=== PATIENT | female | born 1930 | race Caucasian/White ===

== ENCOUNTER → 2016-09-17 10:36 | Outpatient (CLI) | payer MEDICARE ==
[2011-08-06 06:25] VITALS: BMI 25.3
== END | disposition home or self-care (01) ==
LOC: D.MRI 09-16 11:00
DX: M48.06 Spinal stenosis, lumbar region (principal)

== ENCOUNTER 2016-11-07 06:30 | Day surgery (SDC) | payer MEDICARE ==
[2016-11-06 10:31] LABS: BASOPHILS 0.7 % (0-2); EOSINOPHILS 1.4 % (0-7); HEMATOCRIT 41.9 % (36.0-48.0); HEMOGLOBIN 14.2 g/dL (12-16); IMMATURE GRANULOCYTES 0.2 % (0-5); LYMPHOCYTES 24.4 % (15-50); MCH 29.8 pg (26.0-34.0); MCHC 33.9 g/dL (31.0-37.0); MEAN PLATELET VOLUME 9.6 fL (7.4-10.4); MONOCYTES 7.1 % (2-11); NEUTROPHILS 66.2 % (40-80); RBC 4.76 10x6/uL (4.00-5.40); RDW 13.4 % (11.5-14.5); WBC 4.3 10x3/uL (4.8-10.8)
[2016-11-06 10:34] LABS: PLATELET COUNT 154 10x3/uL (130-400)
[2016-11-06 10:41] LABS: ANION GAP 12.4 mmol/L (8-16); CALCIUM 8.6 mg/dL (8.5-10.1); CREATININE - SERUM 0.8 mg/dL (0.6-1.3); POTASSIUM - SERUM 4.4 mmol/L (3.5-5.1)
[2016-11-06 10:42] LABS: APTT 31.1 SECONDS (22.8-39.4)
[~2016-11-07] VITALS: Ht 157.5 cm; Wt 63.5 kg
[~2016-11-07 06:30] MED LIST: ASPIRIN EC81 M1 PO; BIOTIN5 MG PO; HYDROCODON-ACE1 EAC7 PO; RESTORIL15 MG PO
[2016-11-07 08:03] VITALS: BP 189/42; Ht 157.5 cm; Wt 63.5 kg
--- NOTE | 2016-11-07 17:16 | NUR ---
1305- PT SITTING UP WITH HOB ELEVATED. VSS. AWAKE AND ALERT. WILL MONITOR. 1345- TRANSPORTATION CALLED. VSS. WILL CONTINUE TO MONITOR. 1405- IV D/C'D, CATHETER INTACT. 1425- DISCHARGE INSTRUCTIONS COMPLETED. PAPERWORK SIGNED. 1430- PT DISCHARGED VIA WHEELCHAIR, TO [facility]S TRANSP[facility].
== END 2016-11-07 14:30 | disposition home or self-care (01) ==
LOC: D.OPS 06:30 → D.PAN 09:50 → D.OPS 10:30 → D.PAN 10:30 → D.OPS 14:30
PROVIDERS: Anesthesiology
DX: N39.41 Urge incontinence (principal); N32.89 Other specified disorders of bladder; Z01.812 Encounter for preprocedural laboratory examination

== ENCOUNTER → 2016-12-31 18:05 | Outpatient (CLI) | payer MEDICARE ==
[2016-11-07 08:03] VITALS: BMI 25.6
[2016-12-31 21:41] LABS: APPEARANCE CLEAR (CLEAR); BILIRUBIN NEGATIVE (NEGATIVE); COLOR YELLOW (YELLOW); GLUCOSE NEGATIVE (NEGATIVE); KETONE NEGATIVE (NEGATIVE); LEUKOCYTE ESTERASE TRACE (NEGATIVE); NITRITE NEGATIVE (NEGATIVE); PROTEIN NEGATIVE (NEGATIVE); UROBILINOGEN NORMAL (NORMAL)
[2016-12-31 21:42] LABS: BACTERIA MANY /hpf (NONE SEEN); EPITHELIAL CELLS 0-5 /hpf (0-5); WHITE CELLS - URINE 0-5 /hpf (0-5)
== END | disposition home or self-care (01) ==
LOC: D.LABREF 18:05
PROVIDERS: Urology
DX: N39.0 Urinary tract infection, site not specified (principal)

== ENCOUNTER → 2017-02-04 16:34 | Outpatient (CLI) | payer MEDICARE ==
[2016-11-07 08:03] VITALS: BMI 25.6
== END | disposition home or self-care (01) ==
LOC: D.LABREF 16:34
DX: N39.0 Urinary tract infection, site not specified (principal)

== ENCOUNTER → 2017-02-18 17:54 | Outpatient (CLI) | payer MEDICARE ==
[2016-11-07 08:03] VITALS: BMI 25.6
== END | disposition home or self-care (01) ==
LOC: D.LABREF 17:54
DX: N39.0 Urinary tract infection, site not specified (principal)

== ENCOUNTER → 2017-05-12 18:54 | Outpatient (CLI) | payer MEDICARE ==
[2016-11-07 08:03] VITALS: BMI 25.6
== END | disposition home or self-care (01) ==
LOC: D.LABREF 18:54
DX: N39.0 Urinary tract infection, site not specified (principal)

== ENCOUNTER → 2017-05-26 21:32 | Outpatient (CLI) | payer MEDICARE ==
[2016-11-07 08:03] VITALS: BMI 25.6
== END | disposition home or self-care (01) ==
LOC: D.LABREF 21:32
DX: N39.0 Urinary tract infection, site not specified (principal)

== ENCOUNTER → 2017-06-09 18:19 | Outpatient (CLI) | payer MEDICARE ==
[2016-11-07 08:03] VITALS: BMI 25.6
== END | disposition home or self-care (01) ==
LOC: D.LABREF 18:19
DX: N39.0 Urinary tract infection, site not specified (principal)

== ENCOUNTER 2017-06-19 06:43 | Day surgery (SDC) | payer MEDICARE | END 2017-06-19 12:15 | disposition home or self-care (01) | LOC: D.OPS 06:43 | DX: N39.41 Urge incontinence (principal); Z01.812 Encounter for preprocedural laboratory examination ==

== ENCOUNTER → 2018-01-08 11:34 | Outpatient (CLI) | payer MEDICARE ==
[2017-06-19 08:05] VITALS: BMI 24.1
[~2018-01-08 11:34] MED LIST changes: +CIPRO500 MG PO; +LASIX20 MG PO; +MULTI-DAY VITAM1 TAB PO
== END | disposition home or self-care (01) ==
LOC: D.RAD 11:34
DX: M25.561 Pain in right knee (principal)

== ENCOUNTER → 2018-02-02 16:14 | Outpatient (CLI) | payer MEDICARE ==
[2017-06-19 08:05] VITALS: BMI 24.1
== END | disposition home or self-care (01) ==
LOC: D.LABREF 16:14
DX: D72.829 Elevated white blood cell count, unspecified (principal); R79.89 Other specified abnormal findings of blood chemistry; R31.9 Hematuria, unspecified

== ENCOUNTER → 2018-02-16 17:35 | Outpatient (CLI) | payer MEDICARE ==
[2017-06-19 08:05] VITALS: BMI 24.1
== END | disposition home or self-care (01) ==
LOC: D.LABREF 17:35
DX: D72.829 Elevated white blood cell count, unspecified (principal); R31.9 Hematuria, unspecified

== ENCOUNTER → 2018-03-16 16:45 | Outpatient (CLI) | payer MEDICARE ==
[2017-06-19 08:05] VITALS: BMI 24.1
== END | disposition home or self-care (01) ==
LOC: D.LABREF 16:45
DX: N39.0 Urinary tract infection, site not specified (principal)

== ENCOUNTER → 2018-05-15 12:16 | Outpatient (CLI) | payer MEDICARE ==
[2017-06-19 08:05] VITALS: BMI 24.1
== END | disposition home or self-care (01) ==
LOC: D.LAB 12:16
DX: R19.7 Diarrhea, unspecified (principal); R19.4 Change in bowel habit